=== PATIENT | female | born 1980 | race Caucasian/White ===

== ENCOUNTER → 2017-08-19 | Day surgery (SDC) | payer OTHER ==
[~2017-08-19] MED LIST: Cozaar PO; INTEGRA PLUS C1 EACH PO; PEPCID40 MG PO; PHENERGAN25 MG PO; PROTONIX40 MG PO; PROVENTIL3 ML/2.5 M IH; Rocephin 2000 mg vial IV; XOPENEX0.63 MG/3 IH; ZYNCOF 20-400120 ML PO
== END | disposition home or self-care (01) ==
LOC: CIR.AMB 10:26
DX: O02.1 Missed abortion (principal)